=== PATIENT | male | born 1980 | race Caucasian/White ===

== ENCOUNTER 2017-12-26 14:00 | Outpatient (RCR) | payer OTHER | END 2018-01-03 | disposition home or self-care (01) | LOC: PTY 14:00 | DX: M76.71 Peroneal tendinitis, right leg (principal); M79.672 Pain in left foot; M25.371 Other instability, right ankle ==

== ENCOUNTER 2019-07-22 15:55 | Outpatient (CLI) | payer BC ==
--- NOTE | 2019-07-22 19:25 | Diagnostic Imaging Report ---
Clinical Indication:Right wrist pain Technique: 3 views of the right wrist Comparison: None Findings: No acute fractures. No dislocations. The joint spaces are preserved. Impression: Negative
--- NOTE | 2019-07-22 19:26 | Diagnostic Imaging Report ---
Indication: Pain, 3 weeks status post injury Technique: 3 views of the right second finger Comparison: none Findings: No acute fractures. No dislocations. The joint spaces are preserved. No radiopaque foreign body demonstrated. Impression: Negative
== END 2019-07-22 17:55 | disposition home or self-care (01) ==
LOC: RAD 15:55
DX: M25.531 Pain in right wrist (principal); M25.541 Pain in joints of right hand

== ENCOUNTER → 2020-01-15 | Outpatient (CLI) | payer BC ==
--- NOTE | 2020-01-15 17:04 | Diagnostic Imaging Report ---
Indication: Left toe pain for one week Technique: 4 views of the right great toe Comparison: none Findings: There is some irregularity of the medial base of the first proximal phalanx. Much of this appears to be degenerative in nature. However, there is suggestion of a transverse lucency along the articular surface medially on the AP view which could indicate a nondisplaced osteochondral fracture. No other acute fractures. No dislocations Impression: Possible osteochondral fracture of the base of the first proximal phalanx. Correlate with clinical findings
== END | disposition home or self-care (01) ==
LOC: RAD 15:55
DX: M25.572 Pain in left ankle and joints of left foot (principal); M79.674 Pain in right toe(s); M25.571 Pain in right ankle and joints of right foot; S93.529A Sprain of metatarsophalangeal joint of unspecified toe(s), initial encounter; X58.XXXA Exposure to other specified factors, initial encounter; Y92.9 Unspecified place or not applicable